=== PATIENT | female | born 1965 | race Caucasian/White ===

== ENCOUNTER 2017-04-04 21:08 | Emergency (ER) | payer BC ==
[2016-09-02 06:02] VITALS: BMI 25.6
[~2017-04-04 21:08] MED LIST: CLONAZEPAM1 MG/TAB PO; CYCLOBENZAPRINE10 MG PO; DILAUDID2 MG PO; ESGIC TABLET1 TAB PO; HYDROCODONE-APA1 TAB PO; KLONOPIN1 MG PO; LEVOXYL75 MCG PO; NAPROSYN500 MG PO
== END 2017-04-05 00:11 | disposition home or self-care (01) ==
LOC: D.ER 21:08
DX: K04.7 Periapical abscess without sinus (principal); K08.89 Other specified disorders of teeth and supporting structures; E03.9 Hypothyroidism, unspecified

== ENCOUNTER → 2018-06-22 16:07 | Outpatient (CLI) | payer OTHER ==
[2016-09-02 06:02] VITALS: BMI 25.6
== END | disposition home or self-care (01) ==
LOC: D.MRI 16:07
DX: R42 Dizziness and giddiness (principal)

== ENCOUNTER 2018-12-04 10:07 | Outpatient (CLI) | payer OTHER ==
[2016-09-02 06:02] VITALS: BMI 25.6
== END 2018-12-04 13:00 | disposition home or self-care (01) ==
LOC: D.OPS 10:07
DX: R13.19 Other dysphagia (principal); K21.9 Gastro-esophageal reflux disease without esophagitis

== ENCOUNTER 2018-12-25 05:46 | Day surgery (SDC) | payer OTHER ==
[2018-12-24 11:16] LABS: BASOPHILS 0.3 % (0-2); EOSINOPHILS 1.6 % (0-7); HEMATOCRIT 37.8 % (36.0-48.0); HEMOGLOBIN 12.4 g/dL (12-16); IMMATURE GRANULOCYTES 0.3 % (0-5); LYMPHOCYTES 31.8 % (15-50); MCH 30.6 pg (26.0-34.0); MCHC 32.8 g/dL (31.0-37.0); MCV 93.3 fL (80.0-100.0); MEAN PLATELET VOLUME 8.8 fL (7.4-10.4); MONOCYTES 5.8 % (2-11); NEUTROPHILS 60.2 % (40-80); PLATELET COUNT 296 10x3/uL (130-400); RBC 4.05 10x6/uL (4.00-5.40); RDW 12.3 % (11.5-14.5); WBC 7.7 10x3/uL (4.8-10.8)
[2018-12-24 11:31] LABS: CALC OSMOLALITY 264 mosm/kg (275-300); CALCIUM 8.7 mg/dL (8.5-10.1); CARBON DIOXIDE 31.1 mmol/L (21.0-32.0); CHLORIDE - SERUM 100 mmol/L (98-107); CREATININE - SERUM 0.8 mg/dL (0.6-1.3); GLUCOSE 99 mg/dL (74-106); POTASSIUM - SERUM 3.6 mmol/L (3.5-5.1); SODIUM 133 mmol/L (136-145); UREA NITROGEN 9 mg/dL (7-18); eGFR NON AFRICAN AMERICAN 79 mL/min (90-120)
[~2018-12-25] VITALS: Ht 208.3 cm; Wt 70.3 kg
[~2018-12-25 05:46] MED LIST changes: +LISINOPRIL-HCT1 EAC4 PO; +OMEPRAZOLE40 MG PO; +PEPCID40 MG PO
[2018-12-25] MEDS ORDERED: ULTRAM50 MG PO (06:20)
[2018-12-25 06:25] VITALS: BP 121/68; BMI 16.3
--- NOTE | 2018-12-25 10:44 | NUR ---
PHASE 2 @1034 AITING ON ROOM TO BE CLEANED
[2018-12-25 11:59] VITALS: BP 122/70; Ht 208.3 cm; Wt 70.3 kg
--- NOTE | 2018-12-25 13:12 | NUR ---
RECEIVED PT FROM RECOVERY, PT IS HAVING ABD PAIN AT A 7, STATED NORCO WORKS BETTER FOR HER THAN DILAUDID, STATED WE WILL LET DR ZENG KNOWS WHEN HE COME IN. NO OTHER NEEDS VOICED, CONTINUE WITH PLAN OF CARE
--- NOTE | 2018-12-25 15:10 | OP ---
PATIENT NAME: KATIE DEGROOT MEDICAL RECORD: [id number] :61 LOCATION:[id number] ADMISSION DATE: SURGEON: SHAUN ZENG MD DATE OF OPERATION: 12/25/2018 PREOPERATIVE DIAGNOSES: 1. Gastroesophageal reflux disease. 2. Hiatal hernia. 3. Hypertension. 4. Hypothyroidism. POSTOPERATIVE DIAGNOSES: 1. Gastroesophageal reflux disease. 2. Hiatal hernia. 3. Hypertension. 4. Hypothyroidism. PROCEDURE: Laparoscopic Shantanu with hiatal hernia repair. SURGEON: Shaun Zeng MD BORING MACHINE OPERATOR HORIZONTAL: Hui Preston APRN REPORT OF PROCEDURE: The patient's abdomen was prepped and draped in sterile fashion. A Veress needle was inserted in the left upper quadrant and the abdomen was insufflated. An 11-mm Visiport trocar was inserted in the midline just above the umbilicus. I could see the Veress needle and there was no sign of any injury to bowel or surrounding structures. An 11-mm trocar was placed in the left subcostal region, a 5-mm trocar was placed in the epigastrium, a 5-mm trocar was placed in the left lateral abdomen, and a final 5-mm trocar was placed in the right lateral abdomen. A liver retractor was inserted and the left lobe of the liver was elevated. We could see the stomach projecting up into a small hiatal hernia. We started on the lesser curvature of the stomach and took down the lesser omentum using the Harmonic scalpel. We continued this dissection to the right side of the right norman and freed up all of these structures as far anteriorly and posteriorly as possible. Once we had this freed up, then we moved to the greater curvature of the stomach and the upper third of the stomach, short gastrics were transected using a Harmonic scalpel. We continued this dissection up over the fundus of the stomach and cardia until we encountered the left side of the right norman. Once we dissected this free, then we had a 360-degree inspection of the patient's esophagus and it was freed up from all surrounding tissues. We continued this dissection up into the chest cavity to release any attachments and allow the stomach to easily rest in the abdominal cavity. The esophageal hiatus was then reapproximated with interrupted 0 Polydeks times 3. The fundus of the stomach was then pulled around in a 360-degree posterior wrap on the distal esophagus. This was sutured into place with 0 Polydeks times 3 with the top and the bottom suture incorporating a bite of the esophagus. The wrap appeared to be in good position and did not appear to be too tight. At this point, the area was irrigated out with normal saline and care was taken to assure there was no sign of any bleeding. The liver retractor was removed. The 11-mm trocar site fascias were closed with interrupted 0 Vicryls using a Cliff-Tex suture passer device. The ports and insufflation were then removed. The subcutaneous tissues were infused with a total of 10 mL of 0.25% Marcaine with epinephrine and then closed with subcutaneous 5-0 Monocryl. OPERATIVE REPORT [id number] KATIE DEGROOT COMPLICATIONS: None. CONDITION: Stable. ANESTHESIA: General endotracheal and local. BLOOD LOSS: Minimal. TRANSINT:[id number] Voice Confirmation ID: [id number] DOCUMENT ID: [id number] SHAUN ZENG MD at 1510 CC: Fiorella MORALES BRITTANY [id number] DICTATION DATE: 12/25/18 0929 BASTING MARKER: 12/25/18 1016 [facility] [address] [place] [address]
--- NOTE | 2018-12-25 18:38 | NUR ---
PT C/O PAIN IN LEFT LOWER QUADRANT DESCRIBED IT A "BLOATING" PAIN. NO NEEDS VOICED, CONTINUE WITH PLAN OF CARE
--- NOTE | 2018-12-25 20:10 | NUR ---
AWAKE,ALERT,NO COMPLAITNS VOICED. UPHOLSTERY TECH DILAUDID IN USE FOR PAIN CONTROL. IV INFUSING TO LEFT HAND WITHOUT REDNESS OR EDEMA NOTED. BANDAIDS X 5 INTACT TO LAP SITES WITH NO DRAINAGE NOTED. CL IN REACH
--- NOTE | 2018-12-25 20:33 | NUR ---
I HAVE REVIEWED THIS PT AND I CONCUR WITH PT SHIFT ASSESSMENT BY THE COOK PIE
[2018-12-25 21:37] VITALS: BP 112/72
[2018-12-26 01:33] VITALS: BP 102/65
--- NOTE | 2018-12-26 04:01 | NUR ---
I have reviewed this patient and I concur with the Shift Assessment completed by the Licensed Practical Nurse today this shift.
[2018-12-26 04:48] VITALS: BP 119/67
[2018-12-26 05:19] LABS: BASOPHILS 0 % (0-2); EOSINOPHILS 0.1 % (0-7); HEMATOCRIT 35.6 % (36.0-48.0); HEMOGLOBIN 11.5 g/dL (12-16); IMMATURE GRANULOCYTES 0.2 % (0-5); LYMPHOCYTES 16.4 % (15-50); MCH 30.4 pg (26.0-34.0); MCHC 32.3 g/dL (31.0-37.0); MCV 94.2 fL (80.0-100.0); MEAN PLATELET VOLUME 9.1 fL (7.4-10.4); MONOCYTES 6.6 % (2-11); NEUTROPHILS 76.7 % (40-80); PLATELET COUNT 313 10x3/uL (130-400); RBC 3.78 10x6/uL (4.00-5.40); RDW 12.4 % (11.5-14.5)
[2018-12-26 05:34] LABS: CALC OSMOLALITY 276 mosm/kg (275-300); CALCIUM 8.1 mg/dL (8.5-10.1); CARBON DIOXIDE 32.1 mmol/L (21.0-32.0); CHLORIDE - SERUM 102 mmol/L (98-107); CREATININE - SERUM 0.7 mg/dL (0.6-1.3); GLUCOSE 97 mg/dL (74-106); POTASSIUM - SERUM 3.8 mmol/L (3.5-5.1); SODIUM 139 mmol/L (136-145); UREA NITROGEN 9 mg/dL (7-18); eGFR NON AFRICAN AMERICAN > 90 mL/min (90-120)
[2018-12-26 05:42] LABS: WBC 10.7 10x3/uL (4.8-10.8)
--- NOTE | 2018-12-26 08:10 | NUR ---
PATIENT S/P DAY ONE FOLOWING LAP CASSI, FIVE LAP INCISION SITES WITH BANDAIDS IN PLACE, NO DRAINAGE NOTED. PATIENT NPO FOR BARIUM SWOLLOW THIS AM. PLASTIC FIXTURE BUILDER CONTROLLING PAIN, IV RIGHT HAND NS @125, CL IN REACH
[2018-12-26 09:07] VITALS: BP 109/63
[2018-12-26 13:29] VITALS: BP 100/35
[2018-12-26 17:07] VITALS: BP 82/41
--- NOTE | 2018-12-26 17:59 | NUR ---
PATIENT ASSISTED TO BATHROOM THEN TO CHAIR FOR MEAL, NORCO GIVEN FOR HEADACHE EARLIER HAS HELPED. CL IN REACH
--- NOTE | 2018-12-26 20:11 | NUR ---
AWAKE,ALERT.NO COMPLAINTS VOICED. RESP EVEN AND UNLABORED. NO DISTRESS NOTED. LAP SITE TO ABD WITH BANDAIDS INTACT. ABD SOFT NON DISTENDED. CL IN REACH
--- NOTE | 2018-12-26 21:30 | NUR ---
EKG RESULTS CALLED TO DR HODGES.NO NEW ORDERS RECIEVED
[2018-12-26 21:47] VITALS: BP 119/77
--- NOTE | 2018-12-27 03:04 | NUR ---
I have reviewed this patient and I concur with the Shift Assessment completed by the Licensed Practical Nurse today this shift.
[2018-12-27 04:37] VITALS: BP 124/80
[2018-12-27 05:27] LABS: BASOPHILS 0.1 % (0-2); EOSINOPHILS 0.6 % (0-7); HEMATOCRIT 34.7 % (36.0-48.0); HEMOGLOBIN 11.2 g/dL (12-16); IMMATURE GRANULOCYTES 0.4 % (0-5); LYMPHOCYTES 20.7 % (15-50); MCHC 32.3 g/dL (31.0-37.0); MEAN PLATELET VOLUME 8.9 fL (7.4-10.4); MONOCYTES 7.2 % (2-11); PLATELET COUNT 277 10x3/uL (130-400); RBC 3.73 10x6/uL (4.00-5.40); RDW 12.2 % (11.5-14.5); WBC 10.9 10x3/uL (4.8-10.8)
[2018-12-27 05:47] LABS: CALC OSMOLALITY 276 mosm/kg (275-300); CALCIUM 7.9 mg/dL (8.5-10.1); CARBON DIOXIDE 28.6 mmol/L (21.0-32.0); CHLORIDE - SERUM 104 mmol/L (98-107); CREATININE - SERUM 0.6 mg/dL (0.6-1.3); GLUCOSE 105 mg/dL (74-106); SODIUM 140 mmol/L (136-145); UREA NITROGEN 8 mg/dL (7-18); eGFR NON AFRICAN AMERICAN > 90 mL/min (90-120)
--- NOTE | 2018-12-27 07:50 | NUR ---
PATIENT ADMITTED FOR LAP CASSI ON 12/25. ANTICIPATES GOING HOME TODAY. BANDAIDS C/D/I TO ABDOMEN X 5 SITES. PATIENT DENIES ANY NEEDS AT THIS TIME
[2018-12-27] MEDS ORDERED: REGLAN10 MG PO (08:14)
[2018-12-27] MEDS ORDERED: NORCO-10 PO (08:14)
--- NOTE | 2018-12-27 10:05 | NUR ---
IV REMOVED FROM RIGHT HAND WITH NO REDNESS OR EDEMA AT SITE. DISCHARGE INSTRUCTIONS GIVEN INCLUDING MEDICATIONS AND DIET. PATIENT VOICED UNDERSTANDING. PATIENT TAKEN BY WHEELCHAIR TO PRIVATE CAR WITH HELP FROM VOLUNTEER
[2018-12-27 10:39] VITALS: BP 135/82
== END 2018-12-27 10:10 | disposition home or self-care (01) ==
LOC: D.OPS 05:46 → D.MS 05:46 → D.OPS 08:00 → D.MS 10:52 → D.OPS 11:02 → D.MS 11:02 → D.OPS 12-27 10:10
PROVIDERS: ATTEND Surgery
DX: K21.9 Gastro-esophageal reflux disease without esophagitis (principal); K44.9 Diaphragmatic hernia without obstruction or gangrene; I10 Essential (primary) hypertension; E03.9 Hypothyroidism, unspecified; Z01.812 Encounter for preprocedural laboratory examination

== ENCOUNTER 2019-07-17 15:00 | Outpatient (CLI) | payer OTHER ==
[~2019-07-17 15:00] MED LIST changes: +NORCO-10 PO; +REGLAN10 MG PO; +ULTRAM50 MG PO
== END 2019-07-17 15:30 | disposition home or self-care (01) ==
LOC: D.MAMMO 15:00
PROVIDERS: ATTEND Nurse Practitioner
DX: Z12.31 Encounter for screening mammogram for malignant neoplasm of breast (principal)